=== PATIENT | female | born 2000 | race Two or more races ===

== ENCOUNTER 2023-12-26 11:06 | Emergency (ER) | payer OTHER, SELFPAY ==
--- NOTE | ~2023-12-26 | XR_ITS ---
XR shoulder LT min 2V Ordering provider: Kalpesh Jones MD History: . shoulder pain, HX OF IMPINGEMENT . Comparison: None. FINDINGS: BONES: No acute fracture or dislocation. JOINT SPACES: The acromioclavicular joint is normal. The glenohumeral joint is normal. SOFT TISSUES: Normal. IMPRESSION: No acute osseous abnormality left shoulder. Reviewed, dictated and finalized at location A.
--- NOTE | ~2023-12-26 | CT_ITS ---
CTA chest PE protocol Ordering provider: Kalpesh Jones MD History: 23 years Female with . PE rule out . Comparison: None. Technique: CT angiogram chest was performed following timed intravenous injection of contrast. Thin s lice axial images and reformatted coronal images were obtained. Three dimensional reformatted images of the chest were also obtained using a [employer] workstation. . Automated exposure control and iterati ve reconstruction technique were employed. The dose-length product was 145.11 mGy-cm. 100 mL Omnipaqu e 350 was given IV. Findings: PULMONARY ARTERIES: No pulmonary embolus. VISUALIZED THORACIC INLET: Normal. MEDIASTINUM: Aorta/coronary arteries: Mild atheromatous disease. Heart/other: The heart is slightly enlarged. Lymph nodes: No mediastinal or hilar adenopathy. LUNGS: No pulmonary nodules or masses. No infiltrates or effusions. No pneumothorax. VISUALIZED UPPER ABDOMEN: Otherwise, the visualized upper abdomen is normal. MUSCULOSKELETAL: Soft tissues: The superficial soft tissues are normal. Bones: Age appropriate degenerative changes of the spine. IMPRESSION: 1. No pulmonary embolism. 2. No acute cardiopulmonary pathology. Reviewed, dictated and finalized at location A.
--- NOTE | ~2023-12-26 | XR_ITS ---
XR chest 1V Ordering provider: Kalpesh Jones MD History: 23 years Female with . shoulder pain . Comparison: None. FINDINGS: MEDIASTINUM: The cardiac silhouette is not enlarged. LUNGS: No infiltrates, effusions or pneumothorax. OTHER: No free air under the diaphragm. IMPRESSION: No acute cardiopulmonary pathology. Reviewed, dictated and finalized at location A.
[2023-12-26 11:08] VITALS: BP 118/68; PULSE 58; RESP 16; TEMP 36.3; O2SAT 100
--- NOTE | 2023-12-26 11:29 | ECG_ITS ---
Test Date: 2023-12-26 11:24:21 Measurements Intervals [place] Rate: 55 P: 10 WA: 125 QRS: 40 QRSD: 90 T: 29 QT: 408 QTc: 393 Interpretive Statements SINUS BRADYCARDIA BASELINE ARTIFACT- I, III, AVR, AVL BORDERLINE ECG No previous ECG available for comparison Electronically Signed On 12-26-2023 12:00:43 CDT by Zenon Gillespie D.O.
--- NOTE | 2023-12-26 12:26 | ED.SOB ---
HPI - SOB/Dyspnea General Chief Complaint: Shortness of Breath/Dyspnea Stated Complaint: sob Time Seen by Provider: 12/26/23 12:06 History of Present Illness HPI Narrative: 23-year-old female with a past medical history significant for bursitis or left shoulder presenting to the emergency department for chief complaint of shortness of breath and left-sided shoulder pain. Patient states that her shortness of breath is not that severe but her left shoulder pain is severe radiating down her left elbow. No associated neuropathy weakness. No new trauma. She states that she has been seen by Orthopedic surgery and [facility] where she regions from and was told that she has a planned procedure in March. No previous shoulder surgeries or injections according to the patient. She states she has no associated chest pain, nauseous, vomiting, headache, vision changes, fever, chills, back pain, abdominal pain. No chance of according to the patient. States the pain feels more severe than her normal bursitis. She was seen at [facility] yesterday discharged without any significant workup or oral medications and sent home with a Medrol Dosepak which is not helping. Related Data Allergies Allergy/AdvReac Type Severity Reaction Status Date / Time No Known Allergies Allergy Verified 12/26/23 11:10 Review of Systems Review of Systems: As reviewed above in HPI Exam Narrative: GENERAL: [Well-appearing, well-nourished, and in no acute distress.] HEAD: [Normocephalic, atraumatic.] EYES: [PERRLA and EOMI.] ENT: Nares clear, no rhinorrhea or epistaxis. Mucous membranes moist. NECK: Supple. CHEST: [Clear to auscultation. No respiratory distress.] HEART: [Regular rate and rhythm]. No murmur heard. [Normal peripheral pulses.] ABDOMEN: [Soft, nondistended], [nontender], [No rigidity or guarding] EXTREMITIES: Tenderness to palpation over the lateral aspect of the posterior AC joint, restricted abduction and flexion secondary to pain. Positive Neer's and Saravia testing. No scapular pain, no clavicular pain. No step-offs deformities. Full range of motion distally at the elbow and wrist. T[place] Buster strength 5/5, able to oppose each digit. SKIN: Warm, dry, no rash. NEURO: [No focal deficits]. Alert and oriented [x3.] PSYCH: [Normal mood and affect.] Course Vital Signs Vital signs: Vital Signs Temperature 36.3 C L 12/26/23 11:08 Pulse Rate 58 L 12/26/23 11:08 Respiratory Rate 16 12/26/23 11:08 Blood Pressure 118/68 12/26/23 11:08 Pulse Oximetry 100 12/26/23 11:08 Temperature 36.8 C 12/26/23 14:00 Pulse Rate 57 L 12/26/23 14:00 Respiratory Rate 16 12/26/23 14:00 Blood Pressure 116/68 12/26/23 14:00 Pulse Oximetry 100 12/26/23 14:00 MDM - SOB/Dyspnea MDM Narrative Medical decision making narrative: 23-year-old female with history of bursitis presenting to the emergency room with chief complaint of dyspnea and left-sided shoulder pain. She states her dyspnea is not severe or bothering her presently but she is complaining of severe left shoulder pain. Atraumatic in nature. Examination reveals clinical signs and symptoms of potential bursitis or impingement syndrome. No obvious step-offs deformities or new trauma reported by the patient. She was seen yesterday without any extensive workup and discharge paperwork said she was sent home with Medrol without any imaging studies or blood work obtained yesterday outside facility. Vital she is not hypoxic, not tachycardic, blood pressure within normal limits, afebrile. Clinical suspicion for anything aside from bursitis is low however she does have worsening pain symptoms so brought investigation is ordered at this time. [place] criteria for a pulmonary embolism no trauma for occult fracture, less likely cardiac or vascular nature given well-perfused extremities and lack of risk factors. CBC, CMP, D-dimer, troponin, chest x-ray, shoulder x-ray, EKG were obtained.
[2023-12-26 13:07] LABS: Basophils Absolute Auto 0.1 K/mm3 (0.0-0.1); Basophils Percent Auto 0.7 % (0.2-1.2); Eosinophils Absolute Auto 0.2 K/mm3 (0-0.3); Eosinophils Percent Auto 2.8 % (0-4.4); Hematocrit 34.3 % (37.0-47.0); Hemoglobin 11.1 g/dL (12.0-15.0); Immature Granulocyte Absolute 0.02 K/mm3 (0.00-0.031); Immature Granulocyte Percent A 0.3 % (0-0.5); Lymphocytes Percent Auto 23.8 % (18.3-44.2); Mean Corpuscular HGB Conc 32.4 g/dl (32-36); Mean Corpuscular Hemoglobin 25.2 pg (26-34); Mean Corpuscular Volume 77.8 fl (80-100); Mean Platelet Volume 12.5 fl (7.4-10.4); Monocytes Absolute Auto 0.5 K/mm3 (0.1-0.6); Monocytes Percent Auto 6.4 % (2.6-8.5); Platelet Count Result 288 k/mm3 (150-375); Red Blood Count 4.41 M/mm3 (4.2-5.4); Red Cell Distribution Width 15.4 % (11.5-14.5); White Blood Count 7.6 K/mm3 (4.5-10.0)
[2023-12-26] MEDS: KETOROLAC 30 MG/ML VIAL (*BKC) IV PUSH (13:18)
[2023-12-26 13:26] LABS: Alanine Aminotransferase 11 U/L (6-35); Albumin Level 4.7 g/dL (3.5-5.1); Alkaline Phosphatase 59 U/L (38-126); Anion Gap 8 mmol/L (4-12); Aspartate Amino Transferase 23 U/L (14-36); Bilirubin,Total 0.6 mg/dL (0.2-1.3); Blood Urea Nitrogen 14 mg/dL (7-17); Calcium 9.1 mg/dL (8.4-10.2); Carbon Dioxide 24 mmol/L (22-30); Chloride 100 mmol/L (98-107); Estimated CRCL calculation 135 ml/min; Estimated Glomerular Filt Rate > 60; Glucose 74 mg/dL (65-110); Potassium 4.1 mmol/L (3.4-5.0); Sodium 132 mmol/L (137-145)
[2023-12-26 13:37] LABS: INR 1.1; Prothrombin Time 14.3 Seconds (11.1-14.7)
[2023-12-26 13:37] LABS: Troponin I < 0.012 ng/mL (0.000-0.034)
[2023-12-26 13:38] LABS: Partial Thromboplastin Time 32.6 Seconds (22.3-36.8)
[2023-12-26 13:41] LABS: D Dimer 0.85 ug/mL (<0.48)
[2023-12-26 14:00] VITALS: BP 116/68; PULSE 57; RESP 16; TEMP 36.8; O2SAT 100
[2023-12-26] MEDS: MORPHINE SULFATE (*CRX) 4 MG/ML INJ IV PUSH (14:32)
[2023-12-26 14:33] LABS: BEDSIDEPREGUCG Negative (Negative)
[2023-12-26 16:05] VITALS: BP 121/68; PULSE 57; RESP 16; O2SAT 100
== END 2023-12-26 16:06 | disposition home or self-care (01) ==
PROVIDERS: Emergency Medicine; Emergency Provider Student in an Organized Health Care Education/Training Program
DX: M77.8 Other enthesopathies, not elsewhere classified (principal); M70.812 Other soft tissue disorders related to use, overuse and pressure, left shoulder; X58.XXXA Exposure to other specified factors, initial encounter
CPT/HCPCS: 36415; 71045; 71275; 73030; 80053; 81025; 83735; 84484; 85025; 85380; 85610; 85730; 93005; 96374; 96375; 99284; J1885; J2270; Q9967